=== PATIENT | male | born 1960 | race Caucasian/White ===

== ENCOUNTER 2021-07-16 02:21 | Emergency (ER) | payer OTHER, SELFPAY ==
[2021-07-16 02:23] VITALS: BP 150/84; PULSE 67; RESP 18; TEMP 36.9; O2SAT 98; BMI 28.6
--- NOTE | 2021-07-16 03:12 | ED.GENADULT ---
HPI - General Adult General Chief complaint: General Medical Stated complaint: swollen left side of face Time Seen by Provider: 07/16/21 03:11 Source: patient Mode of arrival: ambulatory History of Present Illness HPI narrative: 60-year-old male without significant past medical history other than he just completed a course of topical 5 FU cream treatment to bilateral upper extremities approximately 1 week ago. Patient states that he knows he had some tingling on the right side of his mouth/upper lip at around 10:30 last night, went to bed, and then awoke with pain/pressure and noted significant swelling to the right side of his face. He denies any associated shortness of breath/scratchy throat/difficulty swallowing/dental caries. He denies any new items other than he did have a an orange yesterday and he has not had 1 of those in many years. Patient denies any acute injury and does not take lisinopril. Related Data Previous Rx's Medication Instructions Recorded valacyclovir 1 gram tablet 1,000 mg PO Q8H 7 Days #21 tab 07/16/21 Allergies Allergy/AdvReac Type Severity Reaction Status Date / Time No Known Allergies Allergy Verified 07/16/21 02:34 Review of Systems Review of Systems: Pertinent positives and negatives as stated in HPI and 10 point review of systems is otherwise negative. [facility] Past Medical History Source: nursing notes reviewed Medical History (Updated 07/16/21 @ 05:23 by Rosetta Viramontes MD) No known health problems Social History Social History Alcohol intake: former Patient Tobacco Use Status: Never used Tobacco Use of substances other than those prescribed or required for medical reasons: No Advance Directives: No Advance Directives Information Provided: Yes Physical Exam ED Vital Signs: Vital Signs - 24 hr 07/16/21 02:23 Temperature 98.4 F Pulse Rate 67 Respiratory Rate 18 Blood Pressure 150/84 H Pulse Oximetry 98 BMI result Body Mass Index 28.6 VITAL SIGNS: Reviewed. GENERAL: Well developed, well nourished, in no acute distress. HEAD: Normocephalic/atraumatic EYES: PERRLA, EOMI EARS: Ext canals without abnormality, TMs non-bulging and non-erythematous NOSE: Nares patent bilateral OROPHARYNX: no oral lesions noted, posterior pharynx clear and non-erythematous without noted tonsillar enlargement/erythema/exudates, no tongue swelling; there is noted swelling to the left Buccal area that extends medially to the upper/lower lip without erythema/induration and on evaluation of the internal mucosa there is questionable vesicle but appears to be blistering, no tongue swelling. NECK: Supple, no adenopathy LUNGS: Normal breath sounds, no tachypnea/wheeze/rhonchi/rales, no stridor. SpO2<98> CARDIOVASCULAR: Regular rate and rhythm without noted murmurs ABDOMEN: Soft, non-tender, non-distended with bowel sounds. No rigidity. No guarding. No palpable masses or hernias noted MUSCULOSKELETAL: No tenderness, deformities, or effusions noted on gross inspection. EXTREMITIES: No cyanosis, clubbing or edema. SKIN: Inspection of the skin reveals skin irritation to bilateral upper extremities status post 5 FU cream treatment NEUROLOGIC: Alert and oriented x 4. Strength and sensation to light touch were grossly intact x 4. Course Course Course Narrative: 60-year-old male with history and clinical presentation initially felt to be herpes zoster/shingles, but appearance is also concerning for possible angioedema and IV was placed with administration steroid/Benadryl/Pepcid. On re-evaluation the overall swelling appearance appears to be mildly decreased and again extensive check of the oral cavity I am not appreciating carol ashley vesicles. There is no involvement of the tongue/uvula/posterior pharynx/floor of the mouth in terms of the swelling. I discussed all findings and plans with the patient and he understands that we will be empirically treating him for shingles/herpes zoster but that he should also continue with Benadryl and contact his primary care provider this morning. Medical Decision Making Lab Data Result diagrams: 07/16/21 03:14 07/16/21 03:14 Labs: Lab Results 07/16/21 07/16/21 Range/Units 03:14 03:14 WBC 7.7 (4.8-10.8) X10*3/uL RBC 4.50 L (4.60-5.80) X10*6/uL Hgb 13.9 L (14.0-18.0) g/dl Hct 41.7 L (42.0-52.0) % MCV 92.7 (80.0-98.0) fL MCH 30.9 (27.0-33.0) pg MCHC 33.3 (31.0-36.0) g/dl RDW 11.9 (11.0-16.0) % Plt Count 279 (160-400) X10*3/uL MPV 9.0 L (9.4-12.4) fL Immature Gran % (Auto) 0.4 (0.0-0.4) % Neut % (Auto) 50.3 (45-73) % Lymph % (Auto) 35.8 (20-40) % [place] % (Auto) 8.8 (2-11) % Eos % (Auto) 4.3 H (0-4) % Baso % (Auto) 0.4 (0-2) % Lymph # (Auto) 2.8 (1.2-4.9) X10*3/uL [place] # (Auto) 0.7 (0.1-1.2) X10*3/uL Eos # (Auto) 0.3 (0.0-0.4) X10*3/uL Baso # (Auto) 0.0 (0.0-0.2) X10*3/uL Abs Immat Gran (auto) 0.03 (0.00-0.03) X10*3/uL Absolute Neuts (auto) 3.9 (2.0-8.3) x10*3/uL Absolute Nucleated RBC 0.000 (0.0-0.012) X10*3/uL Nucleated RBC % (auto) 0.0 (0.0-0.2) /100WBC Sodium 141 (135-145) mmol/L Potassium 3.8 (3.3-5.1) mmol/L Chloride 107 (96-108) mmol/L Carbon Dioxide 27 (22-29) mmol/L Anion Gap 11 L (12-20) BUN 12 (9-16) mg/dL Creatinine 0.87 (0.5-1.4) mg/dL Estim Creat Clear Calc 114.2 Estimated GFR > 60 Random Glucose 104 (60-115) mg/dL Calcium 8.9 (8.4-10.2) mg/dL Discharge Plan Discharge Clinical Impression: Swelling of right side of face, Herpes zoster Patient Disposition: Home, Self-Care Instructions: Shingles (ED) Additional Instructions: 1. You have been started on a course of Valacyclovir for the treatment of herpes zoster. 2. In addition, please take Benadryl 25 mg, 1 tablet, every 6 hours for the next 24 hours. 3. Follow-up with your primary care provider this morning to schedule an appointment for re-evaluation and further outpatient management. Should you begin to experience any difficulty breathing, tongue swelling, throat swelling or difficulty swallowing, fevers/chills please return to the emergency room immediately. Prescriptions: New valacyclovir 1 gram tablet 1,000 mg PO Q8H 7 Days Qty: 21 0RF
[2021-07-16 03:19] LABS: MANUAL DIFF FLAG NO
[2021-07-16 03:21] LABS: Basophils Percent Auto 0.4 % (0-2); Eosinophils Absolute Auto 0.3 X10*3/uL (0.0-0.4); Eosinophils Percent Auto 4.3 % (0-4); Hematocrit 41.7 % (42.0-52.0); Hemoglobin 13.9 g/dl (14.0-18.0); Imm Gran Abs Auto 0.03 X10*3/uL (0.00-0.03); Imm Gran Pct Auto 0.4 % (0.0-0.4); Lymphocytes Absolute Auto 2.8 X10*3/uL (1.2-4.9); Lymphocytes Percent Auto 35.8 % (20-40); Mean Corpuscular HGB Conc 33.3 g/dl (31.0-36.0); Mean Corpuscular Hemoglobin 30.9 pg (27.0-33.0); Mean Corpuscular Volume 92.7 fL (80.0-98.0); Monocytes Absolute Auto 0.7 X10*3/uL (0.1-1.2); Monocytes Percent Auto 8.8 % (2-11); Neutrophils Absolute Auto 3.9 x10*3/uL (2.0-8.3); Neutrophils Percent Auto 50.3 % (45-73); Platelet Count 279 X10*3/uL (160-400); Red Cell Distribution Width 11.9 % (11.0-16.0); White Blood Count 7.7 X10*3/uL (4.8-10.8)
[2021-07-16] MEDS: methylPREDNISolone Sod Succ 125 MG/2 ML VIAL IVPUSH (03:23)
[2021-07-16] MEDS: Famotidine/PF 20 MG/2 ML VIAL IVPUSH (03:23)
[2021-07-16] MEDS: diphenhydrAMINE HCL 50 MG/ML VIAL IVPUSH (03:23)
[2021-07-16 03:31] LABS: Anion Gap 11 (12-20); Blood Urea Nitrogen 12 mg/dL (9-16); Calcium 8.9 mg/dL (8.4-10.2); Carbon Dioxide 27 mmol/L (22-29); Chloride 107 mmol/L (96-108); Creatinine Clr Calc Pharmacy 114.2; Estimated Glomerular Filt Rate > 60; Glucose Random 104 mg/dL (60-115); Potassium 3.8 mmol/L (3.3-5.1); Sodium 141 mmol/L (135-145)
[2021-07-16 05:37] VITALS: BP 152/93; PULSE 69; RESP 16; O2SAT 93
== END 2021-07-16 05:52 | disposition home or self-care (01) ==
PROVIDERS: Emergency Provider Student in an Organized Health Care Education/Training Program
DX: R22.1 Localized swelling, mass and lump, neck (principal); B02.9 Zoster without complications; Z79.899 Other long term (current) drug therapy
CPT/HCPCS: 36415; 80048; 85025; 96374; 96375; 99284; J1200; J2930